=== PATIENT | male | born 1940 | race Caucasian/White ===

== ENCOUNTER → 2018-10-23 06:57 | Outpatient (CLI) | payer MEDICARE ==
[2015-12-03 11:46] VITALS: BMI 28.2
[~2018-10-23 06:57] MED LIST: COZAAR100 MG PO; FLUNISOLIDE29 MCG NASAL; LEVAQUIN500 MG PO; MIRALAX17 GM PO; MOBIC7.5 MG PO; NIFEDIPINE ER30 MG PO; PAMELOR 25 MG C25 MG PO; PREDNISONE20 MG PO; TAMIFLU75 MG PO
== END | disposition home or self-care (01) ==
LOC: D.MRI 06:57
DX: M54.5 Low back pain (principal)

== ENCOUNTER → 2019-01-21 08:15 | Outpatient (CLI) | payer OTHER ==
[2015-12-03 11:46] VITALS: BMI 28.2
== END | disposition home or self-care (01) ==
LOC: D.US 01-20 09:00
DX: N32.9 Bladder disorder, unspecified (principal)